=== PATIENT | female | born 2000 ===

== ENCOUNTER 2019-05-14 11:50 | Inpatient (IN) ==
[2019-05-14 12:52] LABS: Basophils % 0.3 % (0.0-0.8); Eosinophils # 0.6 10*3/uL (0.0-0.87); Eosinophils % 7.9 % (0.00-10.9); Hematocrit 41.1 VOL% (35.7-47.0); Immature Granulocytes % 0.5 %; Immature Granulocytes Absolute 0.04 #; Lymphocytes % 26.3 % (21.3-54.2); Mean Corpuscular HGB Conc 31.6 GM/DL (32-36); Mean Corpuscular Volume 88.2 FL (87-102); Mean Platelet Volume 9.6 FL (9.6-12.0); Monocytes % 8.9 % (1.7-12.7); Neutrophils % 56.1 % (38.7-73.9); Platelet Count 257 T/CUMM (130-400); Red Blood Count 4.66 MC/CUMM (3.8-5.5); White Blood Count 7.6 T/CUMM (4-12)
[2019-05-14 13:44] LABS: Apearance,Urine CLEAR (Clear); Bacteria,Urine Few /HPF (Few); Bilirubin,Urine Negative (Negative); Blood, Urine Negative (Negative); Glucose,Urine (UA) Negative (Negative); Ketones,Urine Negative (Negative); Mucus,Urine Many /LPF (Occasional); Nitrite,Urine Negative (Negative); Protein,Urine Negative; RBC,Urine 2 /HPF (0-4); Squamous Epithelial Cell,Urine Occasional /HPF (0-10); Urine Color Amber (Yellow); Urine Specific Gravity 1.025 (1.001-1.035); WBC,Urine 15 /HPF (0-6)
[2019-05-14] MEDS ORDERED: IBUPROFEN 800 MG TABLET PO PRN (14:25)
[2019-05-14] MEDS ORDERED: BISACODYL 10 MG SUPP RECTAL PRN (14:25)
[2019-05-14] MEDS ORDERED: ACETAMINOPHEN 325 MG TABLET PO PRN (14:25)
[2019-05-14] MEDS ORDERED: LACTATED RINGERS 1,000 ML IV SCH (14:30)
[2019-05-14] MEDS ORDERED: HYDROmorphone 2 MG/1 ML VIAL IV PRN (16:21)
[2019-05-14] MEDS: ONDANSETRON 4 MG/2 ML VIAL IV PRN (17:47)
[2019-05-14] MEDS ORDERED: diphenhydrAMINE CAP 25 MG CAPSULE PO PRN (18:59)
[2019-05-14] MEDS ORDERED: diphenhydrAMINE CAP 25 MG CAPSULE ONE (19:00)
[2019-05-14] MEDS ORDERED: methylPREDNISolone SOD SUC 40 MG/1 ML VIAL IV ONE (19:26)
[2019-05-14] MEDS: SIMETHICONE CHEW 80 MG TABLET PO PRN (19:55)
[2019-05-14] MEDS: DOCUSATE SODIUM 100 MG CAPSULE PO SCH (21:22)
[2019-05-15] MEDS ORDERED: LACTATED RINGERS 1,000 ML IV SCH (00:01)
[2019-05-15] MEDS ORDERED: ACETAMINOPHEN 325 MG TABLET PO PRN (04:25)
[2019-05-15] MEDS ORDERED: ALBUTEROL 2.5 MG/3 ML NEB RESP TX ONE (07:46)
[2019-05-15] MEDS ORDERED: ALBUTEROL 2.5 MG/3 ML NEB RESP TX PRN (07:48)
[2019-05-15] MEDS: ONDANSETRON 4 MG/2 ML VIAL IV PRN ×2 (09:20→17:50)
[2019-05-15] MEDS: MEPERIDINE 50 MG/1 ML VIAL IV PRN ×3 (09:27→19:53)
[2019-05-15] MEDS: SIMETHICONE CHEW 80 MG TABLET PO PRN (09:30)
[2019-05-15] MEDS: cefTRIAXone 1,000 MG in SYRINGE 1 EACH IV SCH (10:00)
[2019-05-15] MEDS: methylPREDNISolone SOD SUC 40 MG/1 ML VIAL IV SCH ×3 (10:05→22:44)
[2019-05-15] MEDS: DOCUSATE SODIUM 100 MG CAPSULE PO SCH ×2 (10:10→22:44)
[2019-05-15] MEDS: ALBUTEROL 2.5 MG/3 ML NEB RESP TX SCH ×2 (12:48→19:16)
[2019-05-16] MEDS: ALBUTEROL 2.5 MG/3 ML NEB RESP TX SCH ×4 (00:20→20:20)
[2019-05-16] MEDS: MEPERIDINE 50 MG/1 ML VIAL IV PRN ×2 (03:57→08:57)
[2019-05-16] MEDS: methylPREDNISolone SOD SUC 40 MG/1 ML VIAL IV SCH ×2 (04:04→15:36)
[2019-05-16] MEDS: ONDANSETRON 4 MG/2 ML VIAL IV PRN ×2 (08:27→18:57)
[2019-05-16] MEDS: DOCUSATE SODIUM 100 MG CAPSULE PO SCH ×2 (08:37→21:43)
[2019-05-16] MEDS: cefTRIAXone 1,000 MG in SYRINGE 1 EACH IV SCH (09:05)
[2019-05-16] MEDS ORDERED: oxyCODONE/ACETAMINOPHEN 5-325 MG TABLET PO PRN ×3 (10:56→10:58)
[2019-05-16] MEDS: oxyCODONE/ACETAMINOPHEN 5-325 MG TABLET PO PRN ×3 (12:43→21:43)
[2019-05-17] MEDS: ALBUTEROL 2.5 MG/3 ML NEB RESP TX SCH ×3 (00:40→19:05)
[2019-05-17] MEDS: oxyCODONE/ACETAMINOPHEN 5-325 MG TABLET PO PRN ×4 (01:12→19:42)
[2019-05-17] MEDS: methylPREDNISolone SOD SUC 40 MG/1 ML VIAL IV SCH ×2 (03:12→15:48)
[2019-05-17] MEDS: cefTRIAXone 1,000 MG in SYRINGE 1 EACH IV SCH (08:19)
[2019-05-17] MEDS: DOCUSATE SODIUM 100 MG CAPSULE PO SCH ×2 (08:19→21:05)
[2019-05-17] MEDS: ONDANSETRON 4 MG/2 ML VIAL IV PRN (12:39)
[2019-05-17] MEDS: MAGNESIUM HYDROXIDE SUSP 30 ML UDCUP PO PRN (15:57)
[2019-05-18] MEDS: ALBUTEROL 2.5 MG/3 ML NEB RESP TX SCH ×4 (02:03→18:46)
[2019-05-18] MEDS: methylPREDNISolone SOD SUC 40 MG/1 ML VIAL IV SCH ×2 (03:10→15:31)
[2019-05-18] MEDS: oxyCODONE/ACETAMINOPHEN 5-325 MG TABLET PO PRN ×5 (03:20→23:48)
[2019-05-18] MEDS: DOCUSATE SODIUM 100 MG CAPSULE PO SCH ×2 (09:00→20:59)
[2019-05-18] MEDS: cefTRIAXone 1,000 MG in SYRINGE 1 EACH IV SCH (09:01)
[2019-05-18] MEDS: MAGNESIUM HYDROXIDE SUSP 30 ML UDCUP PO PRN (18:51)
[2019-05-18] MEDS ORDERED: MAGNESIUM CITRATE 300 ML BOTTLE PO ONE (18:52)
[2019-05-19] MEDS: ALBUTEROL 2.5 MG/3 ML NEB RESP TX SCH ×4 (01:14→19:50)
[2019-05-19] MEDS: methylPREDNISolone SOD SUC 40 MG/1 ML VIAL IV SCH ×2 (03:22→14:50)
[2019-05-19] MEDS ORDERED: ALBUTEROL/IPRATROPIUM 3 ML NEB RESP TX ONE ×2 (06:00→09:47)
[2019-05-19] MEDS ORDERED: DIAZEPAM 5 MG TABLET PO ONE (06:00)
[2019-05-19] MEDS: oxyCODONE/ACETAMINOPHEN 5-325 MG TABLET PO PRN ×3 (06:42→22:54)
[2019-05-19] MEDS ORDERED: ALBUTEROL 2.5 MG/3 ML NEB RESP TX ONE (09:09)
[2019-05-19] MEDS ORDERED: methylPREDNISolone SOD SUC 125 MG/2 ML VIAL ONE (09:19)
[2019-05-19] MEDS: DOCUSATE SODIUM 100 MG CAPSULE PO SCH ×3 (09:33→21:01)
[2019-05-19] MEDS ORDERED: SUGAMMADEX 200 MG/2 ML VIAL IV ONE (10:11)
[2019-05-19] MEDS ORDERED: BISACODYL 10 MG SUPP RECTAL PRN (10:34)
[2019-05-19] MEDS ORDERED: ONDANSETRON 4 MG/2 ML VIAL IV PRN ×2 (10:34→10:57)
[2019-05-19] MEDS ORDERED: ACETAMINOPHEN 325 MG TABLET PO PRN (10:34)
[2019-05-19] MEDS ORDERED: MAGNESIUM HYDROXIDE SUSP 30 ML UDCUP PO PRN (10:34)
[2019-05-19] MEDS ORDERED: IBUPROFEN 800 MG TABLET PO PRN (10:34)
[2019-05-19] MEDS ORDERED: BENZOCAINE/MENTHOL LOZENGE 18/BOX PO PRN (10:34)
[2019-05-19] MEDS ORDERED: DOCUSATE SODIUM 100 MG CAPSULE PO PRN (10:34)
[2019-05-19] MEDS ORDERED: SEVOFLURANE 1 UNIT/15 MINUTE INH ONE (10:53)
[2019-05-19] MEDS ORDERED: PROPOFOL 200 MG/20 ML VIAL IV ONE (10:53)
[2019-05-19] MEDS ORDERED: ROCURONIUM 100 MG/10 ML VIAL IV ONE (10:54)
[2019-05-19] MEDS ORDERED: HYDROmorphone 2 MG/1 ML VIAL ONE (10:54)
[2019-05-19] MEDS ORDERED: ONDANSETRON 4 MG/2 ML VIAL ONE ×2 (10:54)
[2019-05-19] MEDS ORDERED: MIDAZOLAM 2 MG/2 ML VIAL ONE (10:54)
[2019-05-19] MEDS ORDERED: LACTATED RINGERS 1,000 ML IV ONE (10:54)
[2019-05-19] MEDS ORDERED: PHENYLEPHRINE 1 MG/10 ML SYRINGE IV ONE (10:54)
[2019-05-19] MEDS: HYDROmorphone 2 MG/1 ML VIAL IV PRN ×4 (10:55→11:10)
[2019-05-19] MEDS ORDERED: DEXAMETHASONE 4 MG/1 ML VIAL ONE (10:58)
[2019-05-19] MEDS ORDERED: BUPIVACAINE 0.5% 50 ML VIAL ONE (10:58)
[2019-05-19] MEDS ORDERED: EPINEPHrine 1 MG/ML VIAL ONE (10:58)
[2019-05-19] MEDS ORDERED: LIDOCAINE 50 MG/5 ML SYRINGE ONE (10:59)
[2019-05-19] MEDS ORDERED: LACTATED RINGERS 1,000 ML IV SCH (11:00)
[2019-05-19] MEDS ORDERED: MEPERIDINE 25 MG/1 ML VIAL ONE (11:14)
[2019-05-19] MEDS ORDERED: MEPERIDINE 25 MG/1 ML VIAL IV ONE (11:14)
[2019-05-19] MEDS ORDERED: ceFAZolin 1,000 MG in SYRINGE 1 EACH IV SCH (16:34)
[2019-05-19] MEDS: ceFAZolin 1,000 MG in SYRINGE 1 EACH IV SCH (16:54)
[2019-05-19 22:40] LABS: Basophils # 0.1 10*3/uL (0.0-0.2); Basophils % 0.3 % (0.0-0.8); Hemoglobin 13.3 GM/DL (12.0-16.0); Immature Granulocytes % 2.3 %; Lymphocytes # 1.6 10*3/uL (1.4-4.0); Lymphocytes % 8.8 % (21.3-54.2); Mean Corpuscular HGB Conc 31.7 GM/DL (32-36); Mean Platelet Volume 9.3 FL (9.6-12.0); Monocytes % 7.9 % (1.7-12.7); Neutrophils % 80.7 % (38.7-73.9); Platelet Count 323 T/CUMM (130-400); Red Blood Count 4.72 MC/CUMM (3.8-5.5); Red Cell Distribution Width 14.1 % (9.3-17.3); White Blood Count 17.6 T/CUMM (4-12)
[2019-05-20] MEDS: ALBUTEROL 2.5 MG/3 ML NEB RESP TX SCH ×4 (00:05→19:56)
[2019-05-20] MEDS: ceFAZolin 1,000 MG in SYRINGE 1 EACH IV SCH (01:03)
[2019-05-20] MEDS: oxyCODONE/ACETAMINOPHEN 5-325 MG TABLET PO PRN ×5 (03:51→20:34)
[2019-05-20] MEDS: methylPREDNISolone SOD SUC 40 MG/1 ML VIAL IV SCH (03:53)
[2019-05-20 04:58] LABS: Basophils % 0.2 % (0.0-0.8); Hemoglobin 12.8 GM/DL (12.0-16.0); Immature Granulocytes % 1.8 %; Immature Granulocytes Absolute 0.26 #; Lymphocytes # 2.7 10*3/uL (1.4-4.0); Lymphocytes % 18.2 % (21.3-54.2); Mean Corpuscular Volume 89.1 FL (87-102); Mean Platelet Volume 10.2 FL (9.6-12.0); Monocytes % 8.6 % (1.7-12.7); Neutrophils % 71.2 % (38.7-73.9); Platelet Count 326 T/CUMM (130-400); Red Blood Count 4.49 MC/CUMM (3.8-5.5); Red Cell Distribution Width 14.1 % (9.3-17.3); White Blood Count 14.7 T/CUMM (4-12)
[2019-05-20] MEDS: SIMETHICONE CHEW 80 MG TABLET PO PRN (06:19)
[2019-05-20] MEDS: MAGNESIUM HYDROXIDE SUSP 30 ML UDCUP PO SCH ×2 (08:16→21:38)
[2019-05-20] MEDS: METOCLOPRAMIDE 10 MG TABLET PO SCH ×2 (08:17→16:15)
[2019-05-20] MEDS: DOCUSATE SODIUM 100 MG CAPSULE PO SCH ×3 (08:17→21:39)
[2019-05-21] MEDS: ALBUTEROL 2.5 MG/3 ML NEB RESP TX SCH ×3 (00:45→12:16)
[2019-05-21] MEDS: oxyCODONE/ACETAMINOPHEN 5-325 MG TABLET PO PRN ×3 (01:05→12:33)
[2019-05-21] MEDS: DOCUSATE SODIUM 100 MG CAPSULE PO SCH (08:20)
[2019-05-21 11:14] VITALS: BP 120/53
[2019-05-21] MEDS: MAGNESIUM HYDROXIDE SUSP 30 ML UDCUP PO SCH (12:37)
== END 2019-05-21 14:25 | disposition home or self-care (01) | DRG 743 ==
LOC: EDBD → EDUNIT# → N.ED 11:50 → N.EDINP 11:50 → N.OB 15:59
PROVIDERS: ADMIT Obstetrics & Gynecology; ATTEND Obstetrics & Gynecology